=== PATIENT | female | born 1980 | race Caucasian/White ===

== ENCOUNTER → 2017-04-19 | Outpatient (CLI) | payer OTHER ==
--- NOTE | 2017-04-19 08:36 | US ---
EXAMINATION TYPE: US abdomen complete DATE OF EXAM: 04/19/2017 COMPARISON: NONE CLINICAL HISTORY: R74.8 ABN LEVELS OF OTHER SERUM ENZYMES. Abnormal Labs, right side ABD pain, ABD di stention EXAM MEASUREMENTS: Liver Length: 22.2 cm Gallbladder Wall: 0.3 cm CBD: 0.5 cm Spleen: 9.3 cm Right Kidney: 9.6 x 3.1 x 4.0 cm Left Kidney: 10.1 x 4.3 x 3.9 cm Pancreas: body wnl, head and tail obscured by bowel gas Liver: Enlarged, heterogeneous, difficult to penetrate Gallbladder: wnl Evidence for sonographic Virgen's sign: No CBD: wnl Spleen: wnl Right Kidney: wnl Left Kidney: wnl Upper IVC: Difficult to visualize due to enlarged liver Abd Aorta: wnl The liver is heterogenous compatible with fatty hepatic infiltration versus diffuse hepatocellular di sease. The intrahepatic portion of the IVC and proximal abdominal aorta are within normal limits. Th ere is no evidence of cholelithiasis. Common bile duct is unremarkable. The visualized portions of the pancreas are homogenous. The spleen is unremarkable. Kidneys are symmetric and free of hydronep hrosis. No renal lesions are seen. IMPRESSION: 1.The liver is heterogenous compatible with fatty hepatic infiltration versus diffuse hepatocellular disease.
== END | disposition home or self-care (01) ==
LOC: RADUSWWP 08:03
DX: R93.2 Abnormal findings on diagnostic imaging of liver and biliary tract (principal); R74.8 Abnormal levels of other serum enzymes
CPT/HCPCS: 76700

== ENCOUNTER → 2017-05-15 | Outpatient (CLI) | payer OTHER ==
[2017-05-15 15:02] LABS: Basophils % (A) 1 %; CH 39.2; CHCM 32.8; Eosinophils # (A) 0.1 k/uL (0-0.7); Eosinophils % (A) 3 %; HCT 32.7 % (34.0-46.0); HDW 2.45; HGB 10.9 gm/dL (11.4-16.0); Luc # (Auto) 0.15; Luc % (Auto) 3; Lymphocytes # (A) 0.8 k/uL (1.0-4.8); Lymphocytes % (A) 16 %; MCH 39.9 pg (25.0-35.0); MCHC 33.3 g/dL (31.0-37.0); MCV 119.9 fL (80.0-100.0); Macrocytosis Marked; Mean Platelet Volume 6.9; Monocytes # (A) 0.4 k/uL (0-1.0); Monocytes % (A) 7 %; Neutrophils # (A) 3.4 k/uL (1.3-7.7); Neutrophils % (A) 70 %; RBC 2.73 m/uL (3.80-5.40); RDW 14.6 % (11.5-15.5); WBC 4.9 k/uL (3.8-10.6); WBC (Perox) 5.04
[2017-05-15 15:05] LABS: ALT 82 U/L (9-52); AST 331 U/L (14-36); Alkaline Phosphatase 168 U/L (38-126); Anion Gap 13 mmol/L; Blood Urea Nitrogen 8 mg/dL (7-17); C Reactive Protein <5.0 mg/L (<10.0); Calcium 9.7 mg/dL (8.4-10.2); Carbon Dioxide 33 mmol/L (22-30); Chloride 96 mmol/L (98-107); Glucose 106 mg/dL (74-99); Non-African American GFR(MDRD) >60 (>60 ml/min/1.73 sqM); Potassium 4.2 mmol/L (3.5-5.1); Sodium 142 mmol/L (137-145); Total Bilirubin 0.8 mg/dL (0.2-1.3); Total Protein 7.4 g/dL (6.3-8.2)
[2017-05-15 16:19] LABS: Stomatocytes Present
[2017-05-15 18:39] LABS: Erythrocyte Sedimentation Rate 31 mm/hr (0-20)
== END | disposition home or self-care (01) ==
LOC: LABWHC1 14:13
DX: K52.9 Noninfective gastroenteritis and colitis, unspecified (principal); R14.0 Abdominal distension (gaseous)
CPT/HCPCS: 36415; 80053; 85025; 85652; 86140

== ENCOUNTER 2017-08-08 19:27 | Emergency (ER) | payer OTHER ==
[2017-08-08 19:44] VITALS: TEMP 98.6
[2017-08-08] MEDS ORDERED: HYDROmorphone 0.5 MG/0.5 ML SYRINGE IVP STA (20:50)
[2017-08-08] MEDS ORDERED: ONDANSETRON 4 MG/2 ML VIAL IVP STA (20:50)
[2017-08-08] MEDS ORDERED: HYDROmorphone 1 MG/ML 1 ML SYRINGE IVP STA (21:17)
[2017-08-08 21:24] VITALS: BP 116/74; PULSE 121; RESP 18
[2017-08-08 21:25] LABS: Basophils % (A) 0 %; CH 37.3; CHCM 31.2; Eosinophils # (A) 0.1 k/uL (0-0.7); Eosinophils % (A) 2 %; HCT 27.3 % (34.0-46.0); HDW 2.07; HGB 8.3 gm/dL (11.4-16.0); Luc # (Auto) 0.14; Luc % (Auto) 3; Lymphocytes # (A) 0.6 k/uL (1.0-4.8); Lymphocytes % (A) 13 %; MCH 36.7 pg (25.0-35.0); MCHC 30.6 g/dL (31.0-37.0); MCV 120.1 fL (80.0-100.0); Macrocytosis Marked; Mean Platelet Volume 7.4; Monocytes # (A) 0.4 k/uL (0-1.0); Monocytes % (A) 8 %; Neutrophils # (A) 3.5 k/uL (1.3-7.7); Neutrophils % (A) 74 %; RBC 2.27 m/uL (3.80-5.40); WBC 4.8 k/uL (3.8-10.6); WBC (Perox) 4.67
[2017-08-08 21:29] LABS: Appearance,Urine Cloudy (Clear); Bilirubin,Urine 1+ (Negative); Glucose,Urine (UA) Negative (Negative); Ketones,Urine Negative (Negative); Leukocyte Esterase,Urine Small (Negative); Mucus,Urine Many /hpf; Nitrite,Urine Negative (Negative); Particle Count 14657; Protein,Urine Trace (Negative); RBC,Urine 2 /hpf (0-5); Specific Gravity,Urine 1.017 (1.001-1.035); Squamous Epithelial Cell,Urine 5 /hpf (0-4); UA Billing (MACRO vs. MICRO) MICRO; Urobilinogen,Urine <2.0 mg/dL (<2.0); WBC,Urine 9 /hpf (0-5)
--- NOTE | 2017-08-08 21:36 | XR ---
EXAMINATION TYPE: XR KUB DATE OF EXAM: 08/08/2017 COMPARISON: NONE HISTORY: Abdominal pain TECHNIQUE: 2 views FINDINGS: There is no sign of intestinal obstruction or pneumoperitoneum. Fecal pattern is normal. Sharon ng bases are clear of consolidation. There are no pathologic calcifications over the kidneys. There i s increased density over the abdomen suggestive of ascites. IMPRESSION: There is probably ascites. No free air.
[2017-08-08 21:39] LABS: ALT 68 U/L (9-52); AST 258 U/L (14-36); Alkaline Phosphatase 206 U/L (38-126); Amylase 46 U/L (30-110); Anion Gap 12 mmol/L; Blood Urea Nitrogen 2 mg/dL (7-17); Calcium 8.5 mg/dL (8.4-10.2); Carbon Dioxide 30 mmol/L (22-30); Chloride 100 mmol/L (98-107); Glucose 98 mg/dL (74-99); Non-African American GFR(MDRD) >60 (>60 ml/min/1.73 sqM); Sodium 142 mmol/L (137-145); Total Bilirubin 1.6 mg/dL (0.2-1.3); Total Protein 6.4 g/dL (6.3-8.2)
[2017-08-08 21:41] LABS: Potassium 2.7 mmol/L (3.5-5.1)
[2017-08-08 21:50] LABS: Manual Review Performed; Tear Drop Cells Present
[2017-08-08 21:51] LABS: Polychromasia Present; Toxic Granulation Present
--- NOTE | 2017-08-08 22:20 | ED ---
Abdominal Pain HPI - General Chief Complaint: Abdominal Pain Stated Complaint: Abd pain Time Seen by Provider: 08/08/17 20:42 Source: patient Mode of arrival: ambulatory Limitations: no limitations - History of Present Illness Initial Comments: 36-year-old female patient with past medical history significant for bulimia, chronic alcohol abuse, and liver disease presents today for evaluation of abdominal distention and pain. Patient states that she has had these symptoms for months. She states that the pain and swelling in her abdomen is worsening over the last couple of weeks. She comes in today because she feels fatigued, tired, and weak and feels like her symptoms are worsening. She states that she has been having vomiting on a daily basis. She says that she has been having diarrhea and has had some incontinence with this. Patient states that she has been managing her symptoms with her primary care doctor who was recommending a liver biopsy however never set up this test for her. She denies any fever or chills. Patient denies any recent rash, shortness breath, chest pain, back pain , numbness, tingling, dizziness, weakness, hematuria, dysuria, urinary urgency, urinary frequency, headache, visual changes, or any other complaints. She does admit to drinking alcohol today, and is unable to quantify how much. - Related Data Home Medications Medication Instructions Recorded Confirmed Cyanocobalamin (Vitamin B-12) 1,000 mcg PO DAILY 08/08/17 08/08/17 [Vitamin B-12] FLUoxetine HCL [PROzac] 20 mg PO DAILY 08/08/17 08/08/17 Folic Acid 1 mg PO DAILY 08/08/17 08/08/17 Gabapentin [Neurontin] 400 mg PO TID 08/08/17 08/08/17 Mirtazapine [Remeron] 30 mg PO HS 08/08/17 08/08/17 cloNIDine HCL [Catapres] 0.1 mg PO HS PRN 08/08/17 08/08/17 Previous Rx's Medication Instructions Recorded Ondansetron [Zofran ODT] 4 mg PO Q8HR PRN #10 tab 08/08/17 Allergies Allergy/AdvReac Type Severity Reaction Status Date / Time No Known Allergies Allergy Verified 08/08/17 21:18 Review of Systems ROS Statement: Those systems with pertinent positive or pertinent negative responses have been documented in the HPI. ROS Other: All systems not noted in ROS Statement are negative. Past Medical History Additional Past Medical History / Comment(s): hepatitis, alcoholism, bulemia History of Any Multi-Drug Resistant Organisms: None Reported Past Surgical History: No Surgical Hx Reported Past Psychological History: No Psychological Hx Reported Smoking Status: Never smoker Past Alcohol Use History: Abuse, Daily, Heavy Past Drug Use History: None Reported General Exam Limitations: no limitations General appearance: alert, in distress (Mild distress related to pain), other ( This is a ill-appearing, thin appearing adult female patient in mild distress related to pain. Vital signs upon presentation are temperature 98.6F, pulse 127, respirations 20, blood pressure 112/64, pulse ox 98% on room air.) Eye exam: Present: normal appearance, PERRL, EOMI, other (Sunken eyes). Absent : scleral icterus, conjunctival injection, periorbital swelling ENT exam: Present: normal exam, normal oropharynx, mucous membranes moist Respiratory exam: Present: normal lung sounds bilaterally. Absent: respiratory distress, wheezes, rales, rhonchi, stridor Cardiovascular Exam: Present: normal rhythm, tachycardia, normal heart sounds. Absent: systolic murmur, diastolic murmur, rubs, gallop, clicks GI/Abdominal exam: Present: soft, distended (Protruding abdomen), tenderness ( Right upper quadrant tenderness), normal bowel sounds. Absent: guarding, rebound, rigid Neurological exam: Present: alert, oriented X3, CN II-XII intact Psychiatric exam: Present: normal affect, normal mood Skin exam: Present: warm, dry, intact, pallor. Absent: normal color, rash Course Vital Signs 08/08/17 08/08/17 19:40 21:22 Temperature 98.6 F Pulse Rate 127 H 121 H Respiratory 20 18 Rate Blood Pressure 112/64 116/74 O2 Sat by Pulse 98 98 Oximetry Medical Decision Making - Medical Decision Making This is a 36-year-old female patient who presents to the emergency department today with complaints of abdominal pain and abdominal distention. Patient states that symptoms have been going on for months but swelling seems to be getting worse. Patient states that she has been following with her primary care physician for management of chronic liver disease and alcohol abuse. Physical examination did reveal right upper quadrant tenderness and a protruding distended abdomen. Patient's skin was pale. Patient was thin appearing. Labs were reviewed and did show a hemoglobin of 8.3, PT 14.6, INR 1.5, potassium 2.7, total bilirubin of 1.6, AST 258, ALT 68, alk phos 206. Patient' s stool was tested for occult blood and was negative. Patient struck screen was negative. Serum alcohol level was 174. KUB x-ray of the abdomen showed no overall nonobstructive bowel gas pattern with probable ascites. Patient remained tachycardic throughout stay here. EKG showed sinus tachycardia with a rightward axis, rate was 123. Patient's lab abnormalities seemed to be mostly chronic in nature. Her potassium of 2.7 will be replaced with 80 mEq of potassium chloride by mouth. I did discuss the case in detail with my attending physician Dr. Plasencia, he did review labs and he believes patient is stable to be discharged home at this time. Patient will be given Zofran for nausea and vomiting. She is instructed to follow-up with her GI specialist as soon as possible. She is instructed to return here immediately should her symptoms worsen, change, or become unmanageable at home. - Lab Data Result diagrams: 08/08/17 21:10 08/08/17 21:10 Lab Results 08/08/17 08/08/17 08/08/17 Range/Units 21:10 21:10 21:10 WBC 4.8 (3.8-10.6) k/uL RBC 2.27 L (3.80-5.40) m/uL Hgb 8.3 L (11.4-16.0) gm/dL Hct 27.3 L (34.0-46.0) % MCV 120.1 H (80.0-100.0) fL MCH 36.7 H (25.0-35.0) pg MCHC 30.6 L (31.0-37.0) g/dL RDW 15.0 (11.5-15.5) % Plt Count 209 (150-450) k/uL Neutrophils % 74 % Lymphocytes % 13 % Monocytes % 8 % Eosinophils % 2 % Basophils % 0 % Neutrophils # 3.5 (1.3-7.7) k/uL Lymphocytes # 0.6 L (1.0-4.8) k/uL Monocytes # 0.4 (0-1.0) k/uL Eosinophils # 0.1 (0-0.7) k/uL Basophils # 0.0 (0-0.2) k/uL Manual Slide Review Performed Toxic Granulation Present Polychromasia Present Macrocytosis Marked Tear Drop Cells Present PT (9.0-12.0) sec INR (<1.2) APTT (22.0-30.0) sec Sodium 142 (137-145) mmol/L Potassium 2.7 L* (3.5-5.1) mmol/L Chloride 100 (98-107) mmol/L Carbon Dioxide 30 (22-30) mmol/L Anion Gap 12 mmol/L BUN 2 L (7-17) mg/dL Creatinine 0.50 L (0.52-1.04) mg/dL Est GFR (MDRD) Af Amer >60 (>60 ml/min/1.73 sqM) Est GFR (MDRD) Non-Af >60 (>60 ml/min/1.73 sqM) Glucose 98 (74-99) mg/dL Calcium 8.5 (8.4-10.2) mg/dL Total Bilirubin 1.6 H (0.2-1.3) mg/dL AST 258 H (14-36) U/L ALT 68 H (9-52) U/L Alkaline Phosphatase 206 H (38-126) U/L Ammonia 24 (<30) umol/L Total Protein 6.4 (6.3-8.2) g/dL Albumin 3.0 L (3.5-5.0) g/dL Amylase 46 (30-110) U/L Lipase 126 (23-300) U/L Urine Color Urine Appearance (Clear) Urine pH (5.0-8.0) Ur Specific Carroll (1.001-1.035) Urine Protein (Negative) Urine Glucose (UA) (Negative) Urine Ketones (Negative) Urine Blood (Negative) Urine Nitrite (Negative) Urine Bilirubin (Negative) Urine Urobilinogen (<2.0) mg/dL Ur Leukocyte Esterase (Negative) Urine RBC (0-5) /hpf Urine WBC (0-5) /hpf Ur Squamous Epith Cells (0-4) /hpf Hyaline Casts (0-2) /lpf Urine Mucus (None) /hpf Stool Occult Blood (Negative) Urine Opiates Screen (NotDetected) Ur Oxycodone Screen (NotDetected) Urine Methadone Screen (NotDetected) Ur Propoxyphene Screen (NotDetected) Ur Barbiturates Screen (NotDetected) U Tricyclic Antidepress (NotDetected) Ur Phencyclidine Scrn (NotDetected) Ur Amphetamines Screen (NotDetected) U Methamphetamines Scrn (NotDetected) U Benzodiazepines Scrn (NotDetected) Urine Cocaine Screen (NotDetected) U Marijuana (THC) Screen (NotDetected) Serum Alcohol mg/dL 08/08/17 08/08/17 08/08/17 Range/Units 21:10 21:10 21:10 WBC (3.8-10.6) k/uL RBC (3.80-5.40) m/uL Hgb (11.4-16.0) gm/dL Hct (34.0-46.0) % MCV (80.0-100.0) fL MCH (25.0-35.0) pg MCHC (31.0-37.0) g/dL RDW (11.5-15.5) % Plt Count (150-450) k/uL Neutrophils % % Lymphocytes % % Monocytes % % Eosinophils % % Basophils % % Neutrophils # (1.3-7.7) k/uL Lymphocytes # (1.0-4.8) k/uL Monocytes # (0-1.0) k/uL Eosinophils # (0-0.7) k/uL Basophils # (0-0.2) k/uL Manual Slide Review Toxic Granulation Polychromasia Macrocytosis Tear Drop Cells PT (9.0-12.0) sec INR (<1.2) APTT (22.0-30.0) sec Sodium (137-145) mmol/L Potassium (3.5-5.1) mmol/L Chloride (98-107) mmol/L Carbon Dioxide (22-30) mmol/L Anion Gap mmol/L BUN (7-17) mg/dL Creatinine (0.52-1.04) mg/dL Est GFR (MDRD) Af Amer (>60 ml/min/1.73 sqM) Est GFR (MDRD) Non-Af (>60 ml/min/1.73 sqM) Glucose (74-99) mg/dL Calcium (8.4-10.2) mg/dL Total Bilirubin (0.2-1.3) mg/dL AST (14-36) U/L ALT (9-52) U/L Alkaline Phosphatase (38-126) U/L Ammonia (<30) umol/L Total Protein (6.3-8.2) g/dL Albumin (3.5-5.0) g/dL Amylase (30-110) U/L Lipase (23-300) U/L Urine Color Yellow Urine Appearance Cloudy H (Clear) Urine pH 6.0 (5.0-8.0) Ur Specific Carroll 1.017 (1.001-1.035) Urine Protein Trace H (Negative) Urine Glucose (UA) Negative (Negative) Urine Ketones Negative (Negative) Urine Blood Negative (Negative) Urine Nitrite Negative (Negative) Urine Bilirubin 1+ H (Negative) Urine Urobilinogen <2.0 (<2.0) mg/dL Ur Leukocyte Esterase Small H (Negative) Urine RBC 2 (0-5) /hpf Urine WBC 9 H (0-5) /hpf Ur Squamous Epith Cells 5 H (0-4) /hpf Hyaline Casts 3 H (0-2) /lpf Urine Mucus Many H (None) /hpf Stool Occult Blood (Negative) Urine Opiates Screen Not Detected (NotDetected) Ur Oxycodone Screen Not Detected (NotDetected) Urine Methadone Screen Not Detected (NotDetected) Ur Propoxyphene Screen Not Detected (NotDetected) Ur Barbiturates Screen Not Detected (NotDetected) U Tricyclic Antidepress Not Detected (NotDetected) Ur Phencyclidine Scrn Not Detected (NotDetected) Ur Amphetamines Screen Not Detected (NotDetected) U Methamphetamines Scrn Not Detected (NotDetected) U Benzodiazepines Scrn Not Detected (NotDetected) Urine Cocaine Screen Not Detected (NotDetected) U Marijuana (THC) Screen Not Detected (NotDetected) Serum Alcohol 174 mg/dL 08/08/17 08/08/17 Range/Units 21:10 22:51 WBC (3.8-10.6) k/uL RBC (3.80-5.40) m/uL Hgb (11.4-16.0) gm/dL Hct (34.0-46.0) % MCV (80.0-100.0) fL MCH (25.0-35.0) pg MCHC (31.0-37.0) g/dL RDW (11.5-15.5) % Plt Count (150-450) k/uL Neutrophils % % Lymphocytes % % Monocytes % % Eosinophils % % Basophils % % Neutrophils # (1.3-7.7) k/uL Lymphocytes # (1.0-4.8) k/uL Monocytes # (0-1.0) k/uL Eosinophils # (0-0.7) k/uL Basophils # (0-0.2) k/uL Manual Slide Review Toxic Granulation Polychromasia Macrocytosis Tear Drop Cells PT 14.6 H (9.0-12.0) sec INR 1.5 H (<1.2) APTT 28.9 (22.0-30.0) sec Sodium (137-145) mmol/L Potassium (3.5-5.1) mmol/L Chloride (98-107) mmol/L Carbon Dioxide (22-30) mmol/L Anion Gap mmol/L BUN (7-17) mg/dL Creatinine (0.52-1.04) mg/dL Est GFR (MDRD) Af Amer (>60 ml/min/1.73 sqM) Est GFR (MDRD) Non-Af (>60 ml/min/1.73 sqM) Glucose (74-99) mg/dL Calcium (8.4-10.2) mg/dL Total Bilirubin (0.2-1.3) mg/dL AST (14-36) U/L ALT (9-52) U/L Alkaline Phosphatase (38-126) U/L Ammonia (<30) umol/L Total Protein (6.3-8.2) g/dL Albumin (3.5-5.0) g/dL Amylase (30-110) U/L Lipase (23-300) U/L Urine Color Urine Appearance (Clear) Urine pH (5.0-8.0) Ur Specific Carroll (1.001-1.035) Urine Protein (Negative) Urine Glucose (UA) (Negative) Urine Ketones (Negative) Urine Blood (Negative) Urine Nitrite (Negative) Urine Bilirubin (Negative) Urine Urobilinogen (<2.0) mg/dL Ur Leukocyte Esterase (Negative) Urine RBC (0-5) /hpf Urine WBC (0-5) /hpf Ur Squamous Epith Cells (0-4) /hpf Hyaline Casts (0-2) /lpf Urine Mucus (None) /hpf Stool Occult Blood Negative (Negative) Urine Opiates Screen (NotDetected) Ur Oxycodone Screen (NotDetected) Urine Methadone Screen (NotDetected) Ur Propoxyphene Screen (NotDetected) Ur Barbiturates Screen (NotDetected) U Tricyclic Antidepress (NotDetected) Ur Phencyclidine Scrn (NotDetected) Ur Amphetamines Screen (NotDetected) U Methamphetamines Scrn (NotDetected) U Benzodiazepines Scrn (NotDetected) Urine Cocaine Screen (NotDetected) U Marijuana (THC) Screen (NotDetected) Serum Alcohol mg/dL 08/08/17 22:55 EKG obtained at 2227 so shows tachycardia with a rightward axis. Ventricular rate is 123, para 120, QRS duration 72, QTc 416, QTc 595. - Radiology Data Radiology results: report reviewed, image reviewed Two-view x-ray of the abdomen shows no sign of intestinal obstruction or pneumoperitoneum. Fecal pattern is normal. Lung bases are clear consolidation. There are no pathologic calcifications over the kidneys. There is increased density over the abdomen suggestive of ascites. Impression by Dr. Hubbard says there is probably ascites with no free air. Disposition Clinical Impression: Ascites, Alcohol dependence, Liver disease, Abdominal pain Disposition: HOME SELF-CARE Condition: Fair Instructions: Acute Nausea and Vomiting (ED), Ascites (ED), Abdominal Pain (ED) Additional Instructions: Increase fluids. Follow-up with your GI specialist as soon as possible. Take nausea medication as directed. Return here immediately for any new, worsening, or concerning symptoms. Prescriptions: Ondansetron [Zofran ODT] 4 mg PO Q8HR PRN #10 tab PRN Reason: Nausea Referrals: Daquan Jackson MD [Primary Care Provider] - 1-2 days Time of Disposition: 23:01
[2017-08-08 22:53] LABS: INR 1.5 (<1.2); Partial Thromboplastin Time 28.9 sec (22.0-30.0); Prothrombin Time 14.6 sec (9.0-12.0)
[2017-08-08] MEDS ORDERED: POTASSIUM CHLORIDE ER 20 MEQ TAB.ER PO STA (22:55)
[2017-08-08] MEDS ORDERED: HYDROmorphone 1 MG/ML 1 ML SYRINGE ONE (23:58)
== END 2017-08-09 00:09 | disposition home or self-care (01) ==
LOC: EC 19:27
DX: R18.8 Other ascites (principal); R00.0 Tachycardia, unspecified; R11.2 Nausea with vomiting, unspecified; R19.7 Diarrhea, unspecified; F10.20 Alcohol dependence, uncomplicated; Z79.899 Other long term (current) drug therapy; Z86.19 Personal history of other infectious and parasitic diseases; Y90.6 Blood alcohol level of 120-199 mg/100 ml
CPT/HCPCS: 99284; 96374; 96375; 36415; 93005; 80053; 82140; 82150; 83690; 85025; 85610; 85730; 82272; 81001; 80306; 80320; 74000; J2405; J1170